=== PATIENT | male | born 1970 | race African-American/Black ===

== ENCOUNTER 2024-04-15 05:20 | Emergency (ER) | payer MEDICAID ==
[~2024-04-15] VITALS: Ht 177.8 cm; Wt 93.0 kg
[2024-04-15 05:32] VITALS: BP 135/93; PULSE 76; RESP 16; TEMP 97.9; O2SAT 99
[2024-04-15 05:52] VITALS: BP 135/93; PULSE 76; RESP 16; TEMP 97.9; O2SAT 99
== END 2024-04-15 05:52 ==
LOC: MED 05:20
DX: Z02.89 Encounter for other administrative examinations (principal)
CPT/HCPCS: 99283